=== PATIENT | male | born 1990 ===

== ENCOUNTER 2025-06-12 11:45 | Outpatient (AMB) | payer OTHER, SELFPAY ==
--- NOTE | 2025-06-12 12:10 | AM.OFFWIN_ITS ---
Intake Vital Signs 06/12/25 12:17 Height 5 ft 9 in Weight 168 lb BMI 24.8 BP 102/56 L Blood Pressure Location Lt brachial Position Sitting Pulse 80 Pulse Source Pulse Oximeter Temp 98.5 F Temp Source Oral Pulse Oximetry (%) 97 Oxygen Delivery Method Room Air Intake Visit Reasons: [employer]- Rash on legs Intake Note: pt presents wtih itchy red and ring-like rash on lower body and head- rx of hydrocortisone cream seemed to have worsened rash, zyrtec and hydroxyzine also unhelpful Allergies No Known Allergies Allergy (Verified 06/12/25 12:20) Do you need a note to return to daycare/school/sports/work: No HPI HPI Comments History of Present Illness Details History - The patient is a 34-year-old male pres enting with widespread urticaria and a possible allergic reaction. - The urticaria began approximately a mo nth ago following a bee sting on the ear, with symptoms worsening over time. - The patient has tried various antihist amines including hydroxyzine, cetirizine, and Zyrtec, with limited relief. - No new soaps, lotions, or dietary olvera ges have been introduced, and the patient has not been referred to an ragman yet. - The patient also reports dysuria follo wing sexual intercourse, which has been tested negative for common STDs such as gonorrhea and chlamydia. - Previous lab work indicated abnormal l iver enzymes two years ago, but no recent lab work has been conducted for the current symptoms. - He has a dog in his home. - He has no history of tick bites. - He denies fever, chills, joint pain, v isual changes, CP, SOB, abd pain, n/v/d. - Has tried hydrocortisone cream to the rash and it seemed to make it worse. Physical Exam General: Cooperative, healthy appearing, comfortable, no acute distress and well developed Orientation: Patient oriented x3 Limitations: No limitations Mouth: normal, moist oral mucosa Neck: Normal visual inspection and Yes full ROM Respiratory: Normal respiratory effort and able to speak in complete sentences. Clear to auscultation bilaterally. No w/r/r noted. Cardiovascular: RRR, no m/r/g noted. Normal S1 and S2 Skin: Multiple erythematous flat, blanchable, dry, non-tender, macules noted all over the legs, chest, arms, back, neck, and face. Patient was informed and verbally consented to the use of an ambient scribe for clinic note documentation during this visit Review of Systems Const All systems reviewed & are unremarkable except as noted in HPI and below Physical Exam Vital Signs: Last Vital Signs Temp 98.5 F 06/12/25 12:17 Pulse 80 06/12/25 12:17 BP 102/56 L 06/12/25 12:17 Pulse Ox 97 06/12/25 12:17 Oxygen Delivery Method Room Air 06/12/25 12:17 BMI result Body Mass Index 24.8 Assessment & Plan Assessment & Plan (1) Urticaria: Code(s): L50.9 - Urticaria, unspecified Plan Most likely allergic reaction vs dermatitis vs urticaria Plan - Prescribe a course of prednisone to manage the urticaria. - Recommend switching to jamia and adding Pepcid as an H2 lena to help control symptoms. - Advise referral to an ragman for further evaluation and allergy testing. 2. Possible Allergic Reaction - Consider environmental or dietary factors as potential triggers. - Suggest avoiding potential allergens and monitoring for any changes in symptoms. Medications: New prednisone 50 mg PO QAM 5 tabs 0RF famotidine (Pepcid) 20 mg PO DAILY 30 tabs 0RF fexofenadine (Jamia Allergy) 60 mg PO BID 60 tabs 0RF Coding Level of Care Code Est Pt Level 3 (34680) Diagnoses Urticaria L50.9
[2025-06-12 12:17] VITALS: BP 102/56; PULSE 80; TEMP 36.9; O2SAT 97; BMI 24.8
== END 2025-06-12 13:29 | disposition home or self-care (01) ==
PROVIDERS: PCP Family Medicine; Visit Provider Physician Assistant Medical
DX: L50.9 Urticaria, unspecified (principal)